=== PATIENT | female | born 1975 | race African-American/Black ===

== ENCOUNTER 2024-11-18 21:47 | Emergency (ER) | payer MEDICAID ==
[~2024-11-18] VITALS: Ht 162.6 cm; Wt 74.0 kg
[2024-11-18 21:55] VITALS: O2SAT 99
[2024-11-18 22:35] LABS: BASOPHILS % 0.5 % (0.0-2.0); DIFFERENTIAL COMMENT 0; EOSINOPHILS % 1.3 % (0.0-5.0); HEMATOCRIT. 38.2 % (36.0-48.0); HEMOGLOBIN. 12.2 g/dL (12.0-16.0); LYMPHOCYTES % 43.7 % (20.0-50.0); MEAN CORPUSCULAR HGB CONC 31.9 g/dL (31.0-37.0); MEAN CORPUSCULAR VOLUME 78.5 fL (81.0-99.0); MEAN PLATELET VOLUME 9.2 fl (7.4-10.4); MONOCYTES % 10.3 % (2.0-8.0); NEUTROPHILS % 44.2 % (40.0-76.0); PLATELET 167 x1000/uL (130-400); RED BLOOD CELL COUNT 4.87 mill/uL (4.2-5.4); RED CELL DISTRIBUTION WIDTH 15.3 % (11.6-14.6); WHITE BLOOD COUNT 3.7 x1000/uL (4.5-11.0)
[2024-11-18 22:39] LABS: CHLORIDE 106 mEq/L (98-107); POTASSIUM 4.3 mEq/L (3.5-5.1); SODIUM 142 mEq/L (136-145)
[2024-11-18 22:40] LABS: CALCIUM 10.6 mg/dL (8.7-10.4); CARBON DIOXIDE 33 mEq/L (21-32)
[2024-11-18 22:45] LABS: CREATININE 1.1 mg/dL (0.6-1.0); GLUCOSE 103 mg/dL (70-105); UREA NITROGEN BLOOD 22 mg/dL (9-23)
[2024-11-18 22:46] LABS: TROPONIN I HIGH SENSITIVITY < 4 ng/L (3.0-34)
[2024-11-18 22:49] VITALS: BP 140/86; PULSE 80; RESP 16; TEMP 36.7; O2SAT 100
[2024-11-19] MEDS: ASPIRIN 325MG EC TABLET PO ONE (04:06)
[2024-11-19] MEDS ORDERED: ASPI-986 MT (06:09)
[2024-11-19] MEDS ORDERED: PANT40SU MT (06:09)
[2024-11-19] MEDS ORDERED: MAG-55 MT (06:09)
== END 2024-11-19 06:27 | disposition home or self-care (01) ==
LOC: ER 21:47
DX: R07.89 Other chest pain (principal); E11.9 Type 2 diabetes mellitus without complications; E78.00 Pure hypercholesterolemia, unspecified; Z79.899 Other long term (current) drug therapy
CPT/HCPCS: 36415; 71045; 80048; 84484; 85025; 93005; 99285